=== PATIENT | male | born 1945 | race Caucasian/White ===

== ENCOUNTER 2017-01-24 08:00 | Inpatient (IN) | payer MEDICARE, BC ==
[~2017-01-24] VITALS: Ht 170.2 cm; Wt 90.5 kg
[2017-01-24] MEDS ORDERED: ADVIL200 MG PO (08:09)
[2017-01-24] MEDS ORDERED: ZESTRIL40 MG PO (08:09)
--- NOTE | 2017-01-29 18:02 | NUR ---
PT ARRIVED AT 1030 TO GET READY FOR SURGERY WITH AN ANTICIPATED SURGERY TIME OF 1515. PT WAS READY FOR SURGERY BY 1130 AND WAS JUST WAITING IN HIS ROOM. AT 1210 I GOT A CALL FROM JAMAL LEYVA RN FOR [facility] AND SHE ADVISED ME THAT NATO DURAN FROM THE OR CALLED HER AND ADVISED THAT DR. FRANKLIN WAS CANCELING THE PT'S CASE. NATO BERRY INFORMED ME THAT SHE ASKED [employer] DURAN TO HAVE DR. FRANKLIN COME VISIT WITH THE PT ABOUT CANCELING THE CASE. AT 1320 DR. FRANKLIN CAME TO SEE HIS NEXT PT FOR SURGERY. HE WAS LEAVING THE DEPARTMENT I ADVISED HIM THAT HIS LAST PT WAS HERE IN ROOM 1056. DR. FRANKLIN ADVISED ME TO CONTACT HIS OFFICE. I THEN TRIED TO CONTACT NATO ROBERTS FOR DR. FRANKLIN, BUT WAS UNABLE TO GET A HOLD OF HER SO A VOICEMAIL WAS LEFT FOR HER TO CALL ME BACK. I THEN WENT IN TO INFORM THE PT AND HIS THAT HIS PROCEDURE HAS BEEN CANCELED AND SOMEONE FROM DR. FRANKLIN'S OFFICE WOULD BE IN CONTACT WITH HIM TODAY TO GET HIM RESCHEDULED FOR HIS PROCEDURE. PT VERBALIZED OKAY. I THEN DC'D THE PT'S IV FROM HIS L)POSTERIOR FOREARM. THE PT THEN GOT DRESSED AND WAS DISMISSED FROM [facility] AT 1344.
== END 2017-01-29 13:44 | disposition disaster alternative care site (69) | DRG 554 ==
LOC: G3N 01-29 10:22
PROVIDERS: ADMIT Orthopaedic Surgery
DX: M19.011 Primary osteoarthritis, right shoulder (principal); I10 Essential (primary) hypertension; M19.012 Primary osteoarthritis, left shoulder; Z53.8 Procedure and treatment not carried out for other reasons
CPT/HCPCS: J0690; J2001; J7120

== ENCOUNTER 2017-02-19 08:15 | Inpatient (IN) | payer MEDICARE, BC ==
[~2017-02-19] VITALS: Ht 170.2 cm; Wt 91.0 kg
--- NOTE | ~2017-02-19 | OR ---
PATIENT'S NAME: NORMA WHITNEY [facility] AGE: 72 Y [address] ROOM: [place] [address] LOCATION: [facility] ADMIT DATE: 02/19/2017 OR/Procedure Report DISCHARGE DATE: FAMILY PHYSICIAN: RAE TIAN NP ATTENDING PHYSICIAN: GRECIA FRANKLIN SURGEON: Grecia Franklin MD HOSPITAL ACCOUNT MANAGER: Jewel Fuentes PA-C and Grecia Clark. DATE OF PROCEDURE: 02/19/2017 PREOPERATIVE DIAGNOSIS: Right shoulder degenerative joint disease. POSTOPERATIVE DIAGNOSES: Right shoulder degenerative joint disease plus biceps tenosynovitis. PROCEDURE PERFORMED: Right total shoulder arthroplasty and right biceps tenodesis. ANESTHESIA: General endotracheal anesthesia plus subcutaneous and periarticular local anesthesia (ropivacaine with epinephrine and Toradol). DRAINS: None. SPECIMENS: None. COMPLICATIONS: None. ESTIMATED BLOOD LOSS: Less than 100 mL. IMPLANTS: [employer] comprehensive shoulder standard uncemented convertible base plate with 6.5 mm locking screw x1 and 4.75 mm locking screws x2. E1 convertible glenoid polyethylene liner (standard). Standard humeral neck taper adapter with 46 mm x 18 mm x 53 mm radius of curvature modular offset humeral head, size 16 (83 mm long) uncemented humeral stem. Wild Pockets SureLock suture anchor x1. INDICATION FOR PROCEDURE: Mr. Whitney is a 72-year-old male, presenting with severe right shoulder glenohumeral degenerative joint disease and associated severely compromised activities of daily living. He has decided to proceed with right total shoulder arthroplasty after having been thoroughly counseled regarding risks, benefits, limitations, and alternatives to this procedure. He we have specifically discussed risks and implications of infection, neurovascular complications, stiffness, instability, wear, loosening, and potential need for revision. Informed consent has been granted. PATIENT'S NAME: NORMA WHITNEY [facility] AGE: 72 Y [address] ROOM: [place] [address] LOCATION: [facility] ADMIT DATE: 02/19/2017 OR/Procedure Report DISCHARGE DATE: FAMILY PHYSICIAN: RAE TIAN NP ATTENDING PHYSICIAN: GRECIA FRANKLIN DESCRIPTION OF PROCEDURE: The patient positioned in a modified beach chair position after administration of general endotracheal anesthesia and prophylactic antibiotics. His right shoulder and right upper extremity were prepped and draped with vigilant sterile technique. Examination of the right shoulder under anesthesia demonstrated no active skin lesions or masses or muscle atrophy. Passive forward elevation was limited to 95 degrees. Passive external rotation was limited to 10 degrees. The shoulder was approached through a standard deltopectoral incision. The cephalic vein was identified and was mobilized laterally with the deltoid as the deltopectoral interval was bluntly developed. The outer surface of the rotator cuff was normal. The axillary nerve was identified and was vigilantly protected throughout the entire case. There was a moderate amount of fluid within the biceps tendon sheath. The biceps tendon sheath was opened longitudinally with electrocautery. There was mild fraying of the biceps tendon. There was impingement between small osteophytes at the lateral margin of the humeral head and the biceps tendon. These were debrided. The biceps tendon was released at the proximal margin of the intertubercular groove and was later tenodesed to the intertubercular groove using all 4 strands of the above-specified Wild Pockets suture anchor. The subscapularis tendon and anterior capsule were divided longitudinally and tagged with Ethibond suture for later repair. There was a large effusion consisting of benign-appearing translucent synovial fluid. The subscapularis tendon and inferior capsule were completely released. There was full- thickness loss of articular cartilage throughout 90% of the humeral head. There were moderate-sized osteophytes at the periphery of the humeral head. These were removed prior to performing the humeral head articular surface resection with an oscillating saw. Circumferential glenoid exposure was obtained. There was full-thickness loss of articular cartilage throughout the posterior 90% of the glenoid. Degenerative remnants of the glenoid labrum were excised. The intra-articular remnant of the biceps tendon was excised. The glenoid space was reamed over a guidewire, and the noncemented glenoid baseplate was impacted into position. The glenoid base plate obtained an excellent press fit. Supplemental fixation was obtained with a central 6.5 mm locking screw and 2 peripheral 4.75 mm locking screws. The glenoid baseplate was impacted into position with excellent circumferential visualization to confirm that it had been fully seated. Attention was refocused on the proximal humerus. The proximal humerus was reamed by hand to a size 16 with tapered conical reamers. The size 16 reamer PATIENT'S NAME: NORMA WHITNEY [facility] AGE: 72 Y [address] ROOM: [address] [address] LOCATION: [facility] ADMIT DATE: 02/19/2017 OR/Procedure Report DISCHARGE DATE: FAMILY PHYSICIAN: RAE TIAN NP ATTENDING PHYSICIAN: GRECIA FRANKLIN tightly engaged the endosteal cortex of the proximal humerus. The proximal humerus was broached. The humeral head was sized. Trial reductions confirmed appropriate stability, humeral height, and range of motion. All trial components were removed. The final humeral stem was impacted into position and obtained excellent axial and rotational stability. The trunnion was thoroughly irrigated and dried. The final humeral head and neck adaptor were impacted into position and obtained anatomic coverage of the neck. A final reduction was performed. It should be noted that the entire incision and the entire joint space were thoroughly irrigated with bacteriostatic pulsatile saline lavage at this point as well as several times throughout the case. The subscapularis tendon was repaired with multiple [id number] interrupted #2 Orthocord sutures. Subcutaneous tissues were infiltrated with local anesthetic and reapproximated with simple deep interrupted 0 Vicryl. The skin was closed with superficial buried interrupted 2-0 Vicryl followed by a running subcuticular 3-0 Monocryl suture, followed by Dermabond, followed by Steri-Strips with benzoin. The dressing consisted of an occlusive Mepilex dressing. A shoulder immobilizer was placed. The patient was extubated and transported to the post anesthesia care unit in stable, comfortable condition. It should be noted that the physician's event marketing assistant played an active, integral role throughout this entire operation. By providing expert retraction, they greatly facilitated and expedited safe and effective exposure of the proximal humerus and glenoid for preparation and implantation of the components. They were also actively involved in patient's positioning, prepping and draping, as well as wound closure. MD BENITA JEFF/melia /[id number] d: 02/20/17 0816 t: 06/18/17 0104, OPERATIVE SUMMARY
--- NOTE | ~2017-02-19 | OR ---
PATIENT'S NAME: NORMA MONTEMAYOR [facility] AGE: 72 Y [address] 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 POSTOPERATIVE DIAGNOSES: 1. 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 2. Biceps tenosynovitis. GRECIA GREEN MD JMW/modl /[id number] d: 03/01/17 2339 t: 03/17/17 2141, OPERATIVE SUMMARY
[~2017-02-19 08:15] MED LIST: ADVIL200 MG PO; ZESTRIL40 MG PO
--- NOTE | 2017-02-20 03:38 | NUR ---
Significant Event: Alert and oriented X3. Vital signs stable. Mepilex dressing to R) shoulder is CDI. CSM WNL. Immobilizer intact. Ice. Ambulated in room with 1 person assist and gait belt. Voided 650 ml. IV SL'd. Dilaudid 2mg PO given for pain last at 0122. Toradol given x1 at 1845. Follow up: Plans to discharge today.
--- NOTE | 2017-02-20 09:45 | NUR ---
Introduced self/role to patient and his Missy, they live in [place]. Denied any barriers to getting home or at home. Added my name to the marker board, he plans to go home today.
[2017-02-20] MEDS ORDERED: TYLENOL EXTRA500 MG PO (11:58)
[2017-02-20] MEDS ORDERED: COLACE100 MG PO (12:00)
[2017-02-20] MEDS ORDERED: MIRALAX17 GM PO (12:01)
[2017-02-20] MEDS ORDERED: DILAUDID 2MG(HYD2 MG PO (12:02)
--- NOTE | 2017-02-20 14:32 | NUR ---
Dismissal Note: Ambulates with SBA and gaitbelt. Dressing C/D/I. Ice at all times. Immobilizer at all times. Voids without difficulty. Dilaudid 2mg last at 1115. CSM WNL. Hollis education given with dismissal instructions, patient and state understanding. IV d/cd. Dismissed to home per private vehicle with .
== END 2017-02-20 13:30 | disposition disaster alternative care site (69) | DRG 483 ==
LOC: G3N 08:15 → GSDC 08:15 → G3N 17:45 → GSDC 17:46 → G3N 02-20 13:30
PROVIDERS: ADMIT Orthopaedic Surgery
DX: M19.011 Primary osteoarthritis, right shoulder (principal); I10 Essential (primary) hypertension; M65.811 Other synovitis and tenosynovitis, right shoulder; M16.0 Bilateral primary osteoarthritis of hip; E66.9 Obesity, unspecified; Z68.31 Body mass index [BMI] 31.0-31.9, adult; Z86.19 Personal history of other infectious and parasitic diseases
CPT/HCPCS: C1713; C1776; J0171; J0690; J1100; J1885; J2001; J2250; J2405; J2795; J3010; J7120